=== PATIENT | female | born 1960 | race Caucasian/White ===

== ENCOUNTER 2016-10-21 13:29 | Emergency (ER) | payer BC ==
--- NOTE | ~2016-10-21 | CR173 ---
[facility] A Service [facility] RADIOLOGY TEXT RESULTS PATIENT: LAW FRIAS LOCATION: SED : 60 UNIT #: [id number] AGE: [address]: TAVO MURILLO SEX: F ORDER DR: [id number] [place] [id number] E MR#: [id number] Acc #: [id number] NAME: LAW FRIAS : 1960 SEX: F STUDY DATE/TIME: 10/21/2016 14:30 UNIT: SED ROOM: STUDY DESCRIPTION: CR Knee 3 Views Rt Attending Physician: Tavo Murillo Ordering Physician: Tavo Murillo Primary Care Physician: Alison Adame M.D. MEDICAL IMAGING REPORT This report is preliminary unless electronic signature is present. EXAM Right knee. HISTORY [place]. No specific injury. Patient has swelling and pain. COMMENT Three views of the right knee are reviewed. There is a moderate sized suprapatellar joint effusion. There is mild osteoarthritis with narrowing at the lateral tibiofemoral compartment and small osteophyte formation and some narrowing at the patellofemoral compartment with some osteophyte formation. There is no acute fracture or bone destruction or radiopaque foreign body. IMPRESSION There is a moderate-sized joint effusion and there is mild changes of osteoarthritis. No acute fracture, dislocation, or radiopaque foreign body. Dictated by... Donna Issa M.D. THIS IS AN ELECTRONICALLY VERIFIED REPORT Donna Issa M.D. at 10/23/2016 8:41 AM VARGHESE/herson TD: 10/22/2016 09:26 JOB #: [id number] [facility] A Service [facility] RADIOLOGY TEXT RESULTS PATIENT: LAW FRIAS LOCATION: SED : 60 UNIT #: [id number] AGE: [address]: TAVO MURILLO SEX: F ORDER DR: MEDICAL IMAGING REPORT Page 1 of 1
[~2016-10-21 13:29] MED LIST: ALBUTEROL17 GM INH; ALPRAZOLAM PO; AMBIEN10 MG PO; ANTIVERT PO; ATIVAN0.5 MG DOB; ATIVAN0.5 MG PO; BACTRIM DS TABL1 TA1 PO; BENTYL PO; CALCIUM + D 6001 TA1 PO; DOXEPIN HCL50 MG PO; FISH OIL 10001000 MG PO; FLAX SEED OIL1000 M1 PO; FLONASE NS; LORTAB 5/500 TA1 TA1 PO; MULTI VITAMIN1 EACH PO; NEURONTIN300 MG PO; PANTOPRAZOLE SO40 MG PO; PROAIR HFA8.5 GM; SINGULAIR PO; TOPAMAX PO; VICODIN 5/1 TAB 5/50 PO; WELLBUTRIN XL PO; WELLBUTRIN75 M1 PO; XANAX1 MG PO; ZOFRANODT PO
== END 2016-10-21 16:24 | disposition home or self-care (01) ==
LOC: SED 13:29
DX: M25.461 Effusion, right knee (principal); R03.0 Elevated blood-pressure reading, without diagnosis of hypertension; Z98.890 Other specified postprocedural states; Z90.710 Acquired absence of both cervix and uterus; Z88.8 Allergy status to other drugs, medicaments and biological substances; Z79.899 Other long term (current) drug therapy
CPT/HCPCS: 29530; 73562; 99283